=== PATIENT | female | born 1935 | race Caucasian/White ===

== ENCOUNTER 2018-07-22 06:10 | Inpatient (IN) | payer MEDICARE, MEDICAID ==
[2018-07-07 09:39] LABS: ABSOLUTE BASOPHILS 0.1 thou/uL (0.0-0.2); ABSOLUTE EOSINOPHILS 0.4 thou/uL (0.0-0.7); ABSOLUTE LYMPHOCYTES 1.2 thou/uL (0.8-5.3); ABSOLUTE MONOCYTES 0.6 thou/uL (0.0-1.2); ABSOLUTE NEUTROPHILS 2.5 thou/uL (1.6-8.1); BASOPHILS 2.1 %; EOSINOPHILS 7.6 %; HEMATOCRIT 31.6 % (37.0-47.0); HEMOGLOBIN 10.4 gm/dL (12.0-15.0); LYMPHOCYTES 24.5 %; MCH 28.1 pg (26.0-34.0); MCHC 32.8 g/dL (28.0-37.0); MCV 85.6 fL (80.0-100.0); MONOCYTES 12.1 %; MPV 8.4 fl. (7.2-11.1); NUCLEATED RBCS 0 /100WBC; PLATELET COUNT* 220 thou/uL (150-400); POLYS 53.7 %; RBC 3.69 mil/uL (4.20-5.00); RDW-CV 18.4 % (10.5-14.5); WBC 4.7 thou/uL (4.0-11.0)
[2018-07-07 09:50] LABS: APTT 38.7 Seconds (25.0-31.3); PROTIME 10.6 Seconds (9.20-11.50)
[2018-07-07 09:53] LABS: ALBUMIN 3.4 g/dL (3.4-5.0); CALCIUM 9.8 mg/dL (8.5-10.1); CREATININE 1.3 mg/dL (0.6-1.3); POTASSIUM 4.2 mmol/L (3.5-5.1); TOTAL BILIRUBIN 0.3 mg/dL (<0.1-1.0); TOTAL PROTEIN 8.2 g/dL (6.4-8.2)
[2018-07-07 10:59] LABS: ESR (SEDRATE) 75 mm/hr (0-30)
--- NOTE | 2018-07-07 13:16 | EKG ---
[place] [address] ELECTROCARDIOGRAM REPORT Name: ANI MARIE Room: PRE IN [facility].#: [id number] Admission: Attend Phys: Vasu Mckeon DO Discharge: Date of : 35 Report #: [id number] THIS REPORT FOR: //name// [facility] Test Date: 2018-07-07 Test Time: 09:40:56 Pat Name: ANI CANNONN Department: Room: Gender: F Electrical [employer] Instrument [employer]ic: : 1935 Requested By: Vasu Mckeon Order Number: [id number] Reading MD: Brad Huber Measurements Intervals [place] Rate: 61 P: 85 HI: 200 QRS: 81 QRSD: 92 T: 22 QT: 482 QTc: 486 Interpretive Statements Sinus rhythm Borderline right axis deviation Borderline prolonged QT interval No previous ECG available for comparison Electronically Signed On 07-07-2018 13:15:54 CDT by Brad Huber [email or web address] <ELECTRONICALLY SIGNED> By: Brad Huebr MD, [facility] 07/07/18 1315 0940 0940 Brad Huber MD, FACC /EPI
[~2018-07-22] VITALS: Ht 147.3 cm; Wt 68.9 kg
[~2018-07-22 06:10] MED LIST: ACCUNEB SO1.25 MG/1 INH; ACETAMINOPHEN650 M5 PO; AMARYL2 MG PO; AMLODIPINE BESY10 MG PO; ARTIFICIAL TEAR15 M1 OPHTHALMIC; ASPIRIN325 PO; ATORVASTATIN CA40 MG PO; BISACODYL SUPP10 MG RECTAL; CEFDINIR300 MG PO; COZAAR 25 MG TA25 M1 PO; DELSYM COU30 MG/5 M1 PO; DEXTROSE 10%-W250 ML IV; DOXEPIN 25 MG C25 M1 PO; FLOMAX0.4 MG PO; GLUCOSE4 GM PO; IPRAT-ALBUT 0.5-3 ML INH; LAMICTAL XR100 MG PO; LEVALBUTER1.25 MG/0. INH; LEXAPRO20 MG PO; LOPRESSOR50 PO; MAXIPIME1 GM IV; METFORMIN HCL500 MG PO; MILK OF MA400 MG/5 M PO; MIRALAX17 GM PO; MUCUS ER600 M1 PO; NEURONTIN 300300 M1 PO; OXYCODONE HCL 55 MG PO; OXYGEN MISCELL; PAXIL10 MG PO; PROTONIX40 M1 PO; PULMICORT0.5 MG/22 INH; SYNTHROID50 MCG PO; TUMS PO; VOLTAREN GEL 1100 G2 TOP; XANAX 0.25 MG0.25 MG PO
[2018-07-22 11:17] LABS: HEMATOCRIT 28.9 % (37.0-47.0); HEMOGLOBIN 9.2 gm/dL (12.0-15.0)
[2018-07-22 12:07] VITALS: BP 166/48
[2018-07-22 15:40] VITALS: BP 165/52
[2018-07-23 05:11] LABS: HEMATOCRIT 22.8 % (37.0-47.0); HEMOGLOBIN 7.4 gm/dL (12.0-15.0)
[2018-07-23 08:00] VITALS: BP 144/49
[2018-07-23 11:43] LABS: ABSOLUTE BASOPHILS 0.1 thou/uL (0.0-0.2); ABSOLUTE LYMPHOCYTES 1.4 thou/uL (0.8-5.3); ABSOLUTE MONOCYTES 1.6 thou/uL (0.0-1.2); ABSOLUTE NEUTROPHILS 7.9 thou/uL (1.6-8.1); BASOPHILS 0.9 %; EOSINOPHILS 0.1 %; HEMATOCRIT 24.1 % (37.0-47.0); HEMOGLOBIN 7.9 gm/dL (12.0-15.0); LYMPHOCYTES 12.5 %; MCHC 32.8 g/dL (28.0-37.0); MCV 85.6 fL (80.0-100.0); MONOCYTES 14.2 %; MPV 8.7 fl. (7.2-11.1); NUCLEATED RBCS 0 /100WBC; PLATELET COUNT* 199 thou/uL (150-400); POLYS 72.3 %; RBC 2.82 mil/uL (4.20-5.00); RDW-CV 17.8 % (10.5-14.5)
[2018-07-23 12:02] LABS: ALBUMIN 2.4 g/dL (3.4-5.0); CREATININE 1.5 mg/dL (0.6-1.3); POTASSIUM 4.9 mmol/L (3.5-5.1); TOTAL BILIRUBIN 0.4 mg/dL (<0.1-1.0); TOTAL PROTEIN 6.5 g/dL (6.4-8.2)
[2018-07-23 15:28] VITALS: BP 121/44
[2018-07-23 20:30] VITALS: BP 185/55
[2018-07-24 04:38] LABS: HEMATOCRIT 22.1 % (37.0-47.0)
[2018-07-24 08:10] VITALS: BP 162/65
[2018-07-24 20:30] VITALS: BP 181/60
[2018-07-25 08:00] VITALS: BP 142/68
[2018-07-25 08:53] LABS: HEMATOCRIT 18.9 % (37.0-47.0); HEMOGLOBIN 6.3 gm/dL (12.0-15.0)
[2018-07-25 12:15] VITALS: BP 107/41; BP 124/34; BP 128/36; BP 135/43
[2018-07-25 16:35] VITALS: BP 119/31
[2018-07-25 20:50] LABS: HEMATOCRIT 23.6 % (37.0-47.0); HEMOGLOBIN 7.9 gm/dL (12.0-15.0)
[2018-07-25 23:00] VITALS: BP 145/42
[2018-07-26 08:00] VITALS: BP 128/39
[2018-07-26 08:24] LABS: HEMATOCRIT 23.3 % (37.0-47.0); HEMOGLOBIN 7.8 gm/dL (12.0-15.0)
[2018-07-26 11:22] VITALS: BP 129/39
[2018-07-26] MEDS ORDERED: ARTIFICIAL TEAR15 M1 INTRAOCULR (12:05)
[2018-07-26] MEDS ORDERED: TRAMADOL 50 MG50 MG PO (13:13)
== END 2018-07-26 15:07 | DRG 469 ==
LOC: M.ORTHSURG 06:10 → M.TBA 06:10 → M.PRE 07:22 → M.ORTHSURG 12:00
PROVIDERS: Orthopaedic Surgery; ADMIT Internal Medicine
PROC: 0QP604Z Removal of Internal Fixation Device from Right Upper Femur, Open Approach (ICD-10-PCS; principal; 2018-07-22)
PROC: 0SR90JA Replacement of Right Hip Joint with Synthetic Substitute, Uncemented, Open Approach (ICD-10-PCS; 2018-07-22)
PROC: 30233N1 Transfusion of Nonautologous Red Blood Cells into Peripheral Vein, Percutaneous Approach (ICD-10-PCS; 2018-07-25)
DX: M16.11 Unilateral primary osteoarthritis, right hip (principal); E43 Unspecified severe protein-calorie malnutrition; D62 Acute posthemorrhagic anemia; Z68.31 Body mass index [BMI] 31.0-31.9, adult; I10 Essential (primary) hypertension; E78.5 Hyperlipidemia, unspecified; F32.9 Major depressive disorder, single episode, unspecified; E87.6 Hypokalemia; E11.42 Type 2 diabetes mellitus with diabetic polyneuropathy; M48.061 Spinal stenosis, lumbar region without neurogenic claudication; F41.9 Anxiety disorder, unspecified; G25.81 Restless legs syndrome; J44.9 Chronic obstructive pulmonary disease, unspecified; E03.9 Hypothyroidism, unspecified; Z79.84 Long term (current) use of oral hypoglycemic drugs; Z88.5 Allergy status to narcotic agent; Z88.2 Allergy status to sulfonamides; Z88.0 Allergy status to penicillin; Z88.8 Allergy status to other drugs, medicaments and biological substances; Z88.6 Allergy status to analgesic agent; Z88.1 Allergy status to other antibiotic agents; Z90.49 Acquired absence of other specified parts of digestive tract; Z90.710 Acquired absence of both cervix and uterus; Z98.41 Cataract extraction status, right eye; Z98.42 Cataract extraction status, left eye